=== PATIENT | male | born 1955 | race Caucasian/White ===

== ENCOUNTER 2017-06-05 04:05 | Emergency (ER) | payer OTHER ==
[~2017-06-05] VITALS: Ht 170.2 cm; Wt 88.0 kg
[2017-06-05 06:00] VITALS: BP 154/87
== END 2017-06-05 07:11 | disposition home or self-care (01) ==
LOC: ER 04:05
DX: M79.671 Pain in right foot (principal); F17.210 Nicotine dependence, cigarettes, uncomplicated
CPT/HCPCS: 73630

== ENCOUNTER 2017-11-01 11:40 | Emergency (ER) | payer OTHER | END 2017-11-01 12:48 | disposition left against medical advice (07) | LOC: ER 11:43 | DX: M79.671 Pain in right foot (principal); Z53.21 Procedure and treatment not carried out due to patient leaving prior to being seen by health care provider ==